=== PATIENT | male | born 1975 | race American Indian/Alaskan Native ===

== ENCOUNTER 2018-10-05 17:20 | Emergency (ER) | payer BC ==
[2018-10-05 17:38] VITALS: BMI 21.5
[2018-10-05 17:50] VITALS: RESP 18; O2SAT 100
--- NOTE | 2018-10-05 18:11 | ED PDOC ---
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 He denied hitting the ground with his head but reports hitting his right hip and knee. He denied any pain in his knee/hip but feels discomfort at the site of hernia surgical incision. Patient denied fever, swelling, N/V, change in bowel movement, muscle weakness, loss of sensation, focal neurological symptoms, chest pain, shortness of breath, palpitation, headache, dizziness, visual changes. 10/05/18 18:14 - History of Present Illness Time/Duration: 4-6 hours Symptom Onset: Sudden Symptom Course: Unchanged Quality: Unable to Describe Severity Level: Mild Activities at Onset: Light Context: Work <Dano Garcia - Last Filed: 10/05/18 20:27> - General Time Seen by Provider: 10/05/18 17:38 Past Medical History - Infectious Disease Hx of Infectious Diseases: None - Cardiac Hx Cardiac Disorders: No - Pulmonary Hx Respiratory Disorders: No - Neurological Hx Neurological Disorder: No - HEENT Hx HEENT Disorder: No - Renal Hx Renal Disorder: No - Endocrine/Metabolic Hx Endocrine Disorders: No - Hematological/Oncological Hx Blood Disorders: No - Integumentary Hx Dermatological Disorder: No - Musculoskeletal/Rheumatological Hx Musculoskeletal Disorders: No - Gastrointestinal Hx Gastrointestinal Disorders: Yes Other/Comment: Hernia - Genitourinary/Gynecological Hx Genitourinary Disorders: No - Psychiatric Hx Psychophysiologic Disorder: No Hx Substance Use: No - Surgical History Other/Comment: Hernia Repair Near Groin <Dano Garcia - Last Filed: 10/05/18 20:27> Family/Social History Family/Social History: No Known Family HX Smoking Status: Never Smoked Hx Alcohol Use: No Hx Substance Use: No Hx Substance Use Treatment: No <Dano Garcia - Last Filed: 10/05/18 20:27> Allergies/Home Meds <Siva Shi - Last Filed: 10/05/18 19:49> <Dano Garcia - Last Filed: 10/05/18 20:27> Allergies/Adverse Reactions: Allergies No Known Allergies Allergy (Verified 10/05/18 17:37) Review of Systems - Physician Review All systems were reviewed & negative as marked: Yes - Review of Systems Constitutional: Normal Eyes: Normal ENT: Normal Respiratory: Normal Cardiovascular: Normal Gastrointestinal: Normal Genitourinary Male: Normal Musculoskeletal: Normal Skin: Normal Neurological: Normal Endocrine: Normal Hemo/Lymphatic: Normal Psychiatric: Normal <Dano Garcia - Last Filed: 10/05/18 20:27> Physical Exam Vital Signs Temp Pulse Resp BP Pulse Ox 10/05/18 17:49 98.5 F 82 18 136/83 100 <Siva Shi - Last Filed: 10/05/18 19:49> Vital Signs Reviewed: Yes Vital Signs Temp Pulse Resp BP Pulse Ox 10/05/18 17:49 98.5 F 82 18 136/83 100 Temperature: Afebrile Blood Pressure: Normal Pulse: Regular Respiratory Rate: Normal Appearance: Positive for: Well-Appearing, Non-Toxic, Comfortable Pain Distress: Mild Mental Status: Positive for: Alert and Oriented X 3 - Systems Exam Head: Present: Atraumatic, Normocephalic. No: Tenderness, Abrasion, Laceration Pupils: Present: PERRL Extroacular Muscles: Present: EOMI Conjunctiva: Present: Normal Ears: Present: Normal Mouth: Present: Moist Mucous Membranes Pharnyx: Present: Normal Nose (External): Present: Atraumatic Nose (Internal): Present: Normal Inspection Neck: Present: Normal Range of Motion Respiratory/Chest: Present: Clear to Auscultation, Good Air Exchange. No: Wheezes, Rhonchi Cardiovascular: Present: Regular Rate and Rhythm, Normal S1, S2. No: Murmurs, Rub, Gallop Abdomen: Present: Normal Bowel Sounds, Other (right groin oblique scar. no masses felt. non tender, no erythema or skin changes). No: Tenderness, Distention, Peritoneal Signs Back: Present: Normal Inspection Upper Extremity: Present: Normal Inspection. No: Cyanosis, Edema Lower Extremity: Present: Normal Inspection. No: Edema Neurological: Present: GCS=15, CN II-XII Intact, Speech Normal Skin: Present: Warm, Dry, Normal Color. No: Rashes Psychiatric: Present: Alert, Oriented x 3, Normal Insight, Normal Concentration <Nashid,Dano - Last Filed: 10/05/18 20:27> Medical Decision Making ED Course and Treatment: 10/05/18 18:49 43 year old male presents to the ED for evaluation of right sided groin discomfort. In agreement with resident note which contains more details about the patient. Patient seen and evaluated with resident. Came up with plan and treatment together. 10/05/18 19:49 patient seen and examined by myself. there was no swelling or abnormal physical exam findings in the patient's noted right pubic area. there were no abnormal penile lesions, no testicular swelling or tenderness and no regional adenopathy. ddx including but not limited to contusion, radicular pain. patient verbally instructed to follow up with his primary care doctor. all findings and plan discussed with patient via [employer] paraprofessional interpreter. - RAD Interpretation Radiology Orders: 10/05/18 18:11 ABDOMEN & PELVIS [ABD & PELVIS W/O PO OR IV CONT] [CT] Stat <Siva Shi - Last Filed: 10/05/18 19:49> Reassessment Condition: Unchanged - RAD Interpretation Radiology Orders: 10/05/18 17:48 ANGIOGRAPHY DISECTION PROTOCOL [CT] Stat <Dano Garcia - Last Filed: 10/05/18 20:27> - PA / PROPERTY INSURANCE AGENT / Resident Statement / has reviewed & agrees with the documentation as recorded. / has examined the patient and agrees with the treatment plan. <Siva Shi - Last Filed: 10/05/18 19:49> Disposition/Present on Arrival - Disposition Have Diagnosis and Disposition been Completed?: Yes Disposition Time: 19:53 Patient Plan: Discharge <Siva Shi - Last Filed: 10/05/18 19:49> - Present on Arrival Any Indicators Present on Arrival: No History of DVT/PE: No History of Uncontrolled Diabetes: No Urinary Catheter: No History of Decub. Ulcer: No History Surgical Site Infection Following: None <Dano Garcia - Last Filed: 10/05/18 20:27> - Disposition Diagnosis: Right groin pain Discharge Instructions (ExitCare): Acute Pelvic Pain Additional Instructions: return for any new or worsening symptoms. follow up with your regular doctor. Prescriptions: Ibuprofen [Motrin Tab] 600 mg PO QID #30 tab Forms: WORK NOTE
[2018-10-05 18:38] LABS: BASO # 0.01 K/mm3 (0.0-2.0); BASO % 0.2 % (0.0-3.0); EOS % 0.5 % (1.5-5.0); HEMOGLOBIN 13.7 g/dL (14.0-18.0); LYMPH # 1.1 (1.2-3.4); LYMPH % 28.1 % (22.0-35.0); MEAN CELL VOLUME 88.6 fl (80.0-105.0); MEAN CORPUSCULAR HEMOGLOBIN 31.1 pg (25.0-35.0); MEAN CORPUSCULAR HGB CONC 35.1 g/dl (31.0-37.0); MEAN PLATELET VOLUME 10.2 fl (7.0-11.0); MONO # 0.3 (0.1-0.6); MONO % 8.1 % (1.0-6.0); RBC 4.4 10^6/uL (3.5-6.1); RED CELL DISTRIBUTION WIDTH 12.2 % (11.5-14.5); WHITE BLOOD COUNT 4.1 10^3/uL (4.5-11.0)
[2018-10-05 18:52] LABS: ALB/GLOB RATIO 1.4 (1.1-1.8); ALBUMIN 4.8 g/dL (3.0-4.8); ALT/SGPT 19 U/L (7-56); AST/SGOT 32 U/L (17-59); BLOOD UREA NITROGEN 12 mg/dL (7-21); CALCIUM 9.7 mg/dL (8.4-10.5); GFR NON-AFRICAN AMERICAN > 60
[2018-10-05 20:07] VITALS: BP 121/82; PULSE 69; TEMP 98.3
[2018-10-06] MEDS ORDERED: Acetaminophen 160 mg/5 ml UD ONE (01:32)
--- NOTE | 2018-10-06 09:17 | CT ---
Date of service: 10/05/2018 PROCEDURE: CT Abdomen and Pelvis without intravenous contrast HISTORY: s/p fall COMPARISON: None. TECHNIQUE: CT scan of the abdomen and pelvis was performed without administration of intravenous contrast. Oral contrast was not administered. Coronal and sagittal reformatted images were obtained. Radiation dose: Total exam DLP = 217.17 mGy-cm. This CT exam was performed using one or more of the following dose reduction techniques: Automated exposure control, adjustment of the mA and/or kV according to patient size, and/or use of iterative reconstruction technique. FINDINGS: LOWER THORAX: The visualized right lung is clear there is a 4 mm subpleural nodule in the left lateral lung base (series 2, image 5). LIVER: Normal in size. No gross lesion or ductal dilatation. GALLBLADDER AND BILE DUCTS: No calcified gallstones. PANCREAS: Normal in size. No gross lesion or ductal dilatation. SPLEEN: Normal in size. ADRENALS: No discrete nodule. KIDNEYS AND URETERS: Normal in size without nephrolithiasis. No hydronephrosis or perinephric fat stranding. VASCULATURE: Normal in caliber. No aortic aneurysm. No aortic atherosclerotic calcification or mural plaque present. BOWEL: The proximal small bowel loops are normal in caliber. There is fluid in the distal small bowel loops. The colon is grossly normal in appearance. No obstruction. No gross mural thickening. APPENDIX: Normal appendix. PERITONEUM: No free fluid. No free air. LYMPH NODES: No enlarged lymph nodes. BLADDER: Well distended and normal in appearance. REPRODUCTIVE: The prostate gland is normal in size. BONES: No acute fracture. Within normal limits for the patient's age. OTHER FINDINGS: None. IMPRESSION: No acute abdominal or pelvic abnormality. A preliminary report was provided by [facility].
== END 2018-10-05 20:22 | disposition home or self-care (01) ==
LOC: ED 17:20
DX: R10.31 Right lower quadrant pain (principal)